=== PATIENT | male | born 1980 | race Caucasian/White ===

== ENCOUNTER 2019-10-20 12:09 | Emergency (ER) | payer BC, OTHER ==
[2019-10-20] MEDS ORDERED: FENTANYL CITR 100 MCG/2 ML ONE (12:52)
[2019-10-20] MEDS ORDERED: ONDANSETRON 4 MG/2 ML VIAL ONE (12:52)
[2019-10-20 13:16] LABS: Potassium 3.8 mmol/L (3.5-5.1)
--- NOTE | 2019-10-20 14:08 | RAD REPORT ---
EXAM DESCRIPTION: CT - Abdomen Pelvis W Contrast - 10/20/2019 1:37 pm CLINICAL HISTORY: TRAUMAabdominal pain, trauma COMPARISON: None. TECHNIQUE: Biphasic, helical CT imaging of the abdomen and pelvis was performed following 100 ml non -ionic IV contrast. No oral contrast. All CT scans are performed using dose optimization technique as appropriate and may include automated exposure control or mA/KV adjustment according to patient size. FINDINGS: No suspicious findings in the lung bases. The liver, spleen, and pancreas show no suspicious findings. Gallbladder and biliary tree are also wi thout suspicious finding. Symmetric renal function is seen with no hydronephrosis or suspicious renal mass. No pyelonephritis o r acute parenchymal process. No bladder abnormalities. No adrenal abnormalities. No dilated bowel loops or bowel wall thickening. No free air, free fluid or inflammatory stranding. No hernia, mass or bulky lymphadenopathy. No vertebral body compression fracture. L5-S1 disc space narrowing is present. Imaged portions of the ribcage show no suspicious findings. Hardware is in place in each femur. IMPRESSION: Contrast enhanced CT abdomen and pelvis showing no significant or suspicious finding.
--- NOTE | 2019-10-20 14:44 | EDPHYS ---
Physician Documentation [facility] Name: aHrjit Lorenzo Jr Age: 39 yrs Sex: Male : 1980 Arrival Date: 10/20/2019 Time: 12:13 Bed 20 Private MD: Unknown, Unknown ED Physician Wally Stover HPI: 10/20 14:59 This 39 yrs old Male presents to ER via Wheelchair with complaints of Fall jr8 Injury, Back Injury. 14:59 Details of fall: The patient fell from a height, down approximately 10 stairs. Onset: jr8 The symptoms/episode began/occurred acutely, today. Associated injuries: The patient sustained injury to the low back, right arm. Severity of symptoms: At their worst the symptoms were moderate, in the emergency department the symptoms are unchanged. The patient has not experienced similar symptoms in the past. The patient has not recently seen a physician. Patient stated that he was going down his stairs at house. Tripped on one and fell sliding down the rest. Pain to right arm and low back. Denies LOC . Historical: - Allergies: 12:15 No Known Allergies; la1 - PMHx: 12:15 None; la1 - Immunization history:: Adult Immunizations up to date. - Social history:: Smoking status: Patient/guardian denies using tobacco. - Ebola Screening: : No symptoms or risks identified at this time. ROS: 14:59 Eyes: Negative for injury, pain, redness, and discharge, ENT: Negative for injury, jr8 pain, and discharge, Neck: Negative for injury, pain, and swelling, Cardiovascular: Negative for chest pain, palpitations, and edema, Respiratory: Negative for shortness of breath, cough, wheezing, and pleuritic chest pain, Abdomen/GI: Negative for abdominal pain, nausea, vomiting, diarrhea, and constipation, Skin: Negative for injury, rash, and discoloration, Neuro: Negative for headache, weakness, numbness, tingling, and seizure. 14:59 Back: Positive for pain at rest, pain with movement, of the lumbar area and low back area. 14:59 MS/extremity: Positive for ecchymosis, pain, tenderness, of the right arm. Exam: 15:05 Head/Face: Normocephalic, atraumatic. Eyes: Pupils equal round and reactive to light, jr8 extra-ocular motions intact. Lids and lashes normal. Conjunctiva and sclera are non-icteric and not injected. Cornea within normal limits. Periorbital areas with no swelling, redness, or edema. ENT: Nares patent. No nasal discharge, no septal abnormalities noted. Tympanic membranes are normal and external auditory canals are clear. Oropharynx with no redness, swelling, or masses, exudates, or evidence of obstruction, uvula midline. Mucous membranes moist. Neck: Trachea midline, no thyromegaly or masses palpated, and no cervical lymphadenopathy. Supple, full range of motion without nuchal rigidity, or vertebral point tenderness. No Meningismus. Chest/axilla: Normal chest wall appearance and motion. Nontender with no deformity. No lesions are appreciated. Cardiovascular: Regular rate and rhythm with a normal S1 and S2. No gallops, murmurs, or rubs. Normal PMI, no JVD. No pulse deficits. Respiratory: Lungs have equal breath sounds bilaterally, clear to auscultation and percussion. No rales, rhonchi or wheezes noted. No increased work of breathing, no retractions or nasal flaring. Abdomen/GI: Soft, non-tender, with normal bowel sounds. No distension or tympany. No guarding or rebound. No evidence of tenderness throughout. Skin: Warm, dry with normal turgor. Normal color with no rashes, no lesions, and no evidence of cellulitis. Neuro: Awake and alert, GCS 15, oriented to person, place, time, and situation. Cranial nerves II-XII grossly intact. Motor strength 5/5 in all extremities. Sensory grossly intact. Cerebellar exam normal. Normal gait. 15:05 Back: pain, that is moderate, of the lumbar area and low back area, ROM is painful, normal spinal alignment noted, bruising noted to left mid back. 15:05 Musculoskeletal/extremity: Extremities: grossly normal except: noted in the right arm: ecchymosis, right forearm and biceps region , ROM: intact in all extremities, Circulation is intact in all extremities. Sensation intact. Vital Signs: 12:15 BP 130 / 73; Pulse 89; Resp 16; Temp 98.4; Pulse Ox 100% on R/A; Weight 108.86 kg; la1 Height 6 ft. 0 in. (182.88 cm); 14:29 BP 108 / 70; Pulse 75; Resp 16; Pulse Ox 97% ; bp 12:15 Body Mass Index 32.55 (108.86 kg, 182.88 cm) la1 MDM: 12:23 Patient medically screened. jr8 15:07 Data reviewed: vital signs, nurses notes, radiologic studies, CT scan. Data jr8 interpreted: Pulse oximetry: on room air is 97 %. Interpretation: normal. Counseling: I had a detailed discussion with the patient and/or guardian regarding: the historical points, exam findings, and any diagnostic results supporting the discharge/admit diagnosis, radiology results, the need for outpatient follow up, a family practitioner, to return to the emergency department if symptoms worsen or persist or if there are any questions or concerns that arise at home. 10/20 12:37 Order name: CBC with Diff; Complete Time: 15:07 jr8 10/20 12:37 Order name: Basic Metabolic Panel; Complete Time: 14:00 jr8 10/20 12:37 Order name: IV; Complete Time: 12:53 jr8 10/20 12:37 Order name: CT Abd/Pelvis - IV Contrast Only; Complete Time: 14:33 jr8 Administered Medications: 12:50 Drug: fentaNYL (PF) 75 mcg Route: IVP; Site: right antecubital; la1 14:30 Follow up: Response: Pain is decreased bp 12:50 Drug: Zofran 4 mg Route: IVP; Site: right antecubital; la1 14:30 Follow up: Response: No adverse reaction bp Disposition: 18:20 Co-signature as Attending Physician, Wally Stover MD Did not see or evaluate patient. ps1 Signing chart for administrative purposes. Not an endorsement of care provided. . Disposition: 10/20/19 14:43 Discharged to Home. Impression: Contusion of right back wall of thorax, Contusion of right upper arm. - Condition is Stable. - Discharge Instructions: Contusion. - Prescriptions for Ibuprofen 800 mg Oral Tablet - take 1 tablet by ORAL route every 12 hours As needed take with food; 20 tablet. Tylenol- Codeine #3 300-30 mg Oral Tablet - take 2 tablets by ORAL route every 6 hours As needed; 12 tablet. Robaxin 500 mg Oral Tablet - take 2 tablet by ORAL route every 6 hours As needed; 40 tablet. - Medication Reconciliation Form, Thank You Letter, Antibiotic Education, Prescription Opioid Use form. - Follow up: Private Physician; When: 2 - 3 days; Reason: Recheck today's complaints, Continuance of care, Re-evaluation by your physician. - Problem is new. - Symptoms have improved. Signatures: Dispatcher [employer] EDMS Humberto Canela PA PA jr8 Mainor Ambrose RN RN la1 Claude Gillespie RN RN bp Wally Stover MD MD ps1 Corrections: (The following items were deleted from the chart) 15:10 14:43 10/20/2019 14:43 Discharged to Home. Impression: Contusion of right back wall of bp thorax; Contusion of right upper arm. Condition is Stable. Forms are Medication Reconciliation Form, Thank You Letter, Antibiotic Education, Prescription Opioid Use. Follow up: Private Physician; When: 2 - 3 days; Reason: Recheck today's complaints, Continuance of care, Re-evaluation by your physician. Problem is new. Symptoms have improved. jr8
--- NOTE | 2019-10-20 14:44 | ER ---
Nurse's Notes [facility] Name: Harjit Lorenzo Jr Age: 39 yrs Sex: Male : 1980 Arrival Date: 10/20/2019 Time: 12:13 Bed 20 Private MD: Unknown, Unknown Diagnosis: Contusion of right back wall of thorax;Contusion of right upper arm Presentation: 10/20 12:14 Presenting complaint: Patient states: at about 0500 I fell down the stairs at home from la1 the second to first story, pain in lower back, denies any numbness or loss of continence. Transition of care: patient was not received from another setting of care. Onset of symptoms was October 20, 2019. Risk Assessment: Do you want to hurt yourself or someone else? Patient reports no desire to harm self or others. Initial Sepsis Screen: Does the patient meet any 2 criteria? No. Patient's initial sepsis screen is negative. Does the patient have a suspected source of infection? No. Patient's initial sepsis screen is negative. Care prior to arrival: None. 12:14 Method Of Arrival: Wheelchair la1 12:14 Acuity: BIENVENIDO 3 la1 Triage Assessment: 12:31 General: Appears in no apparent distress. uncomfortable, Behavior is cooperative, la1 appropriate for age, anxious. Pain: Complains of pain in back. EENT: No deficits noted. Neuro: No deficits noted. Cardiovascular: No deficits noted. Respiratory: No deficits noted. GI: No signs and/or symptoms were reported involving the gastrointestinal system. : No signs and/or symptoms were reported regarding the genitourinary system. Derm: No deficits noted. Musculoskeletal: Circulation, motion, and sensation intact. Range of motion: intact in all extremities. Historical: - Allergies: 12:15 No Known Allergies; la1 - PMHx: 12:15 None; la1 - Immunization history:: Adult Immunizations up to date. - Social history:: Smoking status: Patient/guardian denies using tobacco. - Ebola Screening: : No symptoms or risks identified at this time. Screenin:38 Abuse screen: Denies threats or abuse. Denies injuries from another. Nutritional la1 screening: No deficits noted. Tuberculosis screening: No symptoms or risk factors identified. Fall Risk None identified. Assessment: 12:37 General: SEE TRIAGE NOTE. la1 14:29 Reassessment: ALL CURRENT ORDERS COMPLETED, RESULTS PENDING FOR DISPO. bp 15:09 Reassessment: PT D/C HOME AMBULATORY, DX WITH BACK CONTUSION. bp Vital Signs: 12:15 BP 130 / 73; Pulse 89; Resp 16; Temp 98.4; Pulse Ox 100% on R/A; Weight 108.86 kg; la1 Height 6 ft. 0 in. (182.88 cm); 14:29 BP 108 / 70; Pulse 75; Resp 16; Pulse Ox 97% ; bp 12:15 Body Mass Index 32.55 (108.86 kg, 182.88 cm) la1 ED Course: 12:13 Patient arrived in ED. ag5 12:13 Unknown, Unknown is Private Physician. ag5 12:15 Triage completed. la1 12:15 Arm band placed on left wrist. la1 12:23 Humberto Canela PA is PHCP. jr8 12:23 Wally Stover MD is Attending Physician. jr8 12:27 Mainor Ambrose, COURT is Primary Nurse. la1 12:38 Patient has correct armband on for positive identification. Bed in low position. Call la1 light in reach. Side rails up X2. 12:50 Inserted saline lock: 20 gauge in right antecubital area, using aseptic technique. la1 Blood collected. 13:59 CT Abd/Pelvis - IV Contrast Only In Process Unspecified. EDMS 15:09 No provider procedures requiring assistance completed. IV discontinued, intact, bp bleeding controlled, No redness/swelling at site. Pressure dressing applied. Administered Medications: 12:50 Drug: fentaNYL (PF) 75 mcg Route: IVP; Site: right antecubital; la1 14:30 Follow up: Response: Pain is decreased bp 12:50 Drug: Zofran 4 mg Route: IVP; Site: right antecubital; la1 14:30 Follow up: Response: No adverse reaction bp Outcome: 14:43 Discharge ordered by . jr8 15:09 Discharged to home ambulatory. bp 15:09 Condition: stable 15:09 Discharge instructions given to patient, Instructed on discharge instructions, follow up and referral plans. medication usage, Demonstrated understanding of instructions, follow-up care, medications, Prescriptions given X 3. 15:10 Patient left the ED. bp Signatures: Dispatcher [employer] EDMS Humberto Canela PA PA jr8 Mainor Ambrose RN RN la1 Claude Gillespie RN RN Panda Chu 5 Corrections: (The following items were deleted from the chart) 12:18 12:14 Presenting complaint: Patient states: at about 0500 I fell down the stairs at la1 home from the second to first story, pain in lower back, denies any numbness or loss of continence [facility]
[2019-10-20 15:04] LABS: Absolute Lymphocytes (CBC) 1.2 K/uL (0.7-4.9); Basophils % 1.1 % (0-1.3); Hematocrit 39.1 % (39.6-49.0); Lymphocytes % 19.7 % (15.3-44.8); MPV 8.3 fL (7.6-11.3); RBC Red Blood Cell Count 4.24 M/uL (4.33-5.43)
[2019-10-20 17:59] VITALS: TEMP 98.4
[2019-10-20 18:02] VITALS: BP 108/70; O2SAT 97
== END 2019-10-20 15:10 | disposition home or self-care (01) ==
LOC: ER 12:09
DX: S20.221A Contusion of right back wall of thorax, initial encounter (principal); S40.021A Contusion of right upper arm, initial encounter; W10.9XXA Fall (on) (from) unspecified stairs and steps, initial encounter; Y93.9 Activity, unspecified; Y92.9 Unspecified place or not applicable
CPT/HCPCS: 85025; 80048; 36415; 74177; 96375; 96374; 99284; Q9967; J3010; J2405

== ENCOUNTER 2021-04-20 09:13 | Emergency (ER) | payer BC ==
--- NOTE | 2021-04-20 09:35 | ER ---
Nurse's Notes [facility] Name: Harjit Lorenzo Jr Age: 40 yrs Sex: Male : 1980 Arrival Date: 04/20/2021 Time: 09:17 Bed 19 Private MD: Ga Reardon S Diagnosis: Facial Cellulitis Presentation: 04/20 09:27 Chief complaint: Patient states: Reports abscess on right eye brow, showed up three ld1 days ago. Coronavirus screen: At this time, the client does not indicate any symptoms associated with coronavirus-19. Ebola Screen: No symptoms or risks identified at this time. Initial Sepsis Screen: Does the patient meet any 2 criteria? No. Patient's initial sepsis screen is negative. Does the patient have a suspected source of infection? No. Patient's initial sepsis screen is negative. Risk Assessment: Do you want to hurt yourself or someone else? Patient reports no desire to harm self or others. Onset of symptoms was April 17, 2021. 09: Method Of Arrival: Ambulatory ld1 09:27 Acuity: BIENVENIDO 3 ld1 Triage Assessment: :30 General: Appears in no apparent distress. comfortable, Behavior is calm, cooperative, ld1 appropriate for age. Pain: Complains of pain in inner aspect of right eyebrow Pain does not radiate. Pain currently is 6 out of 10 on a pain scale. Quality of pain is described as burning, stabbing. EENT: Eyes abscess to right eye brow x 3 days. Neuro: Level of Consciousness is awake, alert, obeys commands, Oriented to person, place, time, situation, Appropriate for age. Cardiovascular: Capillary refill < 3 seconds Patient's skin is warm and dry. Respiratory: Airway is patent Respiratory effort is even, unlabored, Respiratory pattern is regular, symmetrical. GI: Abdomen is round non-distended. : No signs and/or symptoms were reported regarding the genitourinary system. Derm: Abscess located on inner aspect of right eyebrow Reports burning, itching. Musculoskeletal: No signs and/or symptoms reported regarding the musculoskeletal system. Historical: - Allergies: 09: No Known Allergies; ld1 - Home Meds: : None [Active]; ld1 - PMHx: : None; ld1 - PSHx: 09:30 None; ld1 - Immunization history:: Adult Immunizations up to date. - Social history:: Smoking status: Patient denies any tobacco usage or history of. Patient uses alcohol, occasionally. Screenin:38 Abuse screen: Denies threats or abuse. Nutritional screening: No deficits noted. ap3 Tuberculosis screening: No symptoms or risk factors identified. Fall Risk None identified. Assessment: 09:34 General: Appears in no apparent distress. distressed, Behavior is calm, cooperative, ap3 appropriate for age. Pain: Complains of pain in inner aspect of right eyebrow Pain does not radiate. Pain currently is 7 out of 10 on a pain scale. Pain began 3 days ago Aggravated by touch. Neuro: Level of Consciousness is awake, alert, obeys commands, Oriented to person, place, time, situation. Cardiovascular: Capillary refill < 3 seconds. Respiratory: Airway is patent Respiratory effort is even, unlabored, Respiratory pattern is regular, symmetrical. GI: No signs and/or symptoms were reported involving the gastrointestinal system. : No signs and/or symptoms were reported regarding the genitourinary system. EENT: Eyes wound noted on right inner eyebrow. Derm: Skin is pink, warm \T\ dry. Wound noted inner aspect of right eyebrow. Vital Signs: 09:27 BP 145 / 100; Pulse 96; Resp 18; Temp 98.2(O); Pulse Ox 98% on R/A; Pain 6/10; ld1 09:38 BP 132 / 101; Pulse 88; Pulse Ox 97% on R/A; Pain 7/10; ap3 09:51 BP 140 / 84; Pulse 86; Pulse Ox 95% on R/A; ap3 ED Course: 09:17 Patient arrived in ED. mr 09:17 Ga Reardon MD is Private Physician. mr 09:18 Edgard Santana [facility] is [facility] 09:18 Mian Gonzalez MD is Attending Physician. jm 09:29 Triage completed. ld1 09:30 Arm band placed on right wrist. Patient placed in an exam room, on a stretcher, on ld1 pulse oximetry. 09:33 Nain Saldivar MD is Referral Physician. jm 09:34 Dorie Dotson, COURT is Primary Nurse. ap3 09:38 Patient has correct armband on for positive identification. Pulse ox on. NIBP on. Door ap3 closed. Noise minimized. 09:52 Patient did not have IV access during this emergency room visit. ap3 10:02 No provider procedures requiring assistance completed. ap3 Administered Medications: No medications were administered Outcome: :34 Discharge ordered by . al 10:02 Discharged to home ambulatory. ap3 10:02 Condition: good 10:02 Discharge instructions given to patient, Instructed on discharge instructions, follow up and referral plans. no drinking with medication, Demonstrated understanding of instructions, follow-up care, medications, Prescriptions given X 2. 10:03 Patient left the ED. ap3 Signatures: Edgard Santana PA PA jmm Rivera, Mary mr Dorie Dotson RN RN ap3 Miri Delgado RN RN ld1
--- NOTE | 2021-04-20 09:35 | EDPHYS ---
Physician Documentation [facility] Name: Harjit Lorenzo Jr Age: 40 yrs Sex: Male : 1980 Arrival Date: 04/20/2021 Time: 09:17 Bed 19 Private MD: Ga Reardon S ED Physician Mian Gonzalez HPI: 04/20 09:30 This 40 yrs old Male presents to ER via Ambulatory with complaints of Abscess.jmm 09:30 The patient presents with an abscess of the inner aspect of right eyebrow. Onset: The jmm symptoms/episode began/occurred gradually, 3 day(s) ago. Possible cause(s): unknown. Associated signs and symptoms: Pertinent positives: swelling, Pertinent negatives: fever. Modifying factors: the symptoms are alleviated by nothing, the symptoms are aggravated by nothing. The patient has not experienced similar symptoms in the past. Historical: - Allergies: 09:30 No Known Allergies; ld1 - Home Meds: 09:30 None [Active]; ld1 - PMHx: 09:30 None; ld1 - PSHx: 09:30 None; ld1 - Immunization history:: Adult Immunizations up to date. - Social history:: Smoking status: Patient denies any tobacco usage or history of. Patient uses alcohol, occasionally. ROS: 09:30 Constitutional: Negative for fever, chills, and weight loss, Cardiovascular: Negative jmm for chest pain, palpitations, and edema, Respiratory: Negative for shortness of breath, cough, wheezing, and pleuritic chest pain. 09:30 Skin: Positive for erythema, swelling. 09:30 All other systems are negative. Exam: 09:30 Constitutional: This is a well developed, well nourished patient who is awake, alert, jmm and in no acute distress. 09:30 ENT: Moist Mucus Membranes Neck: Trachea midline, Supple Chest/axilla: Normal chest wall appearance and motion. Cardiovascular: Regular rate and rhythm. No edema appreciated Respiratory: Normal respirations, no respiratory distress appreciated Abdomen/GI: Non distended, soft Back: Normal ROM 09:30 Head/face: swelling and erythema noted to the right eyebrow. non fluctuant mass appreciated. 09:30 Skin: small indurated area appreciated to the right eyebrow, TTP, . 09:30 Neuro: Orientation: is normal, Mentation: is normal, Memory: is normal. 09:30 Psych: Behavior/mood is pleasant, cooperative. Vital Signs: 09:27 BP 145 / 100; Pulse 96; Resp 18; Temp 98.2(O); Pulse Ox 98% on R/A; Pain 6/10; ld1 09:38 BP 132 / 101; Pulse 88; Pulse Ox 97% on R/A; Pain 7/10; ap3 09:51 BP 140 / 84; Pulse 86; Pulse Ox 95% on R/A; ap3 MDM: 09:30 Patient medically screened. [facility] 09:32 Data reviewed: vital signs, nurses notes. Counseling: I had a detailed discussion with al the patient and/or guardian regarding: the historical points, exam findings, and any diagnostic results supporting the discharge/admit diagnosis, the need for outpatient follow up, to return to the emergency department if symptoms worsen or persist or if there are any questions or concerns that arise at home. ED course: Patient is alert and non toxic aldair appearance in the ED. PE does not appear that the abscess has formed yet. Patient advised to follow up with gen surgery and otherwise given strict return precautions. patient understood and agrees with the plan of care. . Administered Medications: No medications were administered Disposition: 10:59 Co-signature as Attending Physician, Mian Gonzalez MD. manisha Disposition: 04/20/21 09:34 Discharged to Home. Impression: Facial Cellulitis. - Condition is Stable. - Discharge Instructions: Skin Abscess, Cellulitis, Adult. - Prescriptions for Doxycycline Hyclate 100 mg Oral Tablet - take 1 tablet by ORAL route every 12 hours; 20 tablet. Bactrim DS 800- 160 mg Oral Tablet - take 1 tablet by ORAL route every 12 hours for 10 days; 20 tablet. - Medication Reconciliation Form, Thank You Letter, Antibiotic Education, Prescription Opioid Use form. - Follow up: Nain Saldivar MD; When: 2 - 3 days; Reason: Recheck today's complaints, Continuance of care, Re-evaluation by your physician. Signatures: Mian Gonzalez MD MD pkl Mickail, Joel, PA PA jmm Prokisch, Amanda RN RN ap3 Miri Delgado RN RN ld1 Corrections: (The following items were deleted from the chart) 10:03 09:34 04/20/2021 09:34 Discharged to Home. Impression: Facial Cellulitis. Condition is ap3 Stable. Forms are Medication Reconciliation Form, Thank You Letter, Antibiotic Education, Prescription Opioid Use. Follow up: Nain Saldivar; When: 2 - 3 days; Reason: Recheck today's complaints, Continuance of care, Re-evaluation by your physician. al
[2021-04-20 10:11] VITALS: TEMP 98.2
[2021-04-20 10:13] VITALS: BP 140/84; O2SAT 95
== END 2021-04-20 10:03 | disposition home or self-care (01) ==
LOC: ER 09:13
DX: L03.211 Cellulitis of face (principal)
CPT/HCPCS: 99283